=== PATIENT | male | born 1985 | race Caucasian/White ===

== ENCOUNTER 2021-01-19 19:54 | Emergency (ER) | payer OTHER ==
[~2021-01-19] VITALS: Ht 172.7 cm; Wt 77.1 kg
[2021-01-19 21:03] VITALS: BP 152/90
[2021-01-19] MEDS ORDERED: LIDOCAINE VISCOUS 2% UD 15 ML UDC ONE (21:20)
--- NOTE | 2021-01-19 21:27 | NUR ---
JOSE RAFAEL PEMBERTON AT BEDSIDE FOR FOREIGN BODY REMOVAL.
--- NOTE | 2021-01-19 21:44 | NUR ---
TECH AT BEDSIDE FOR IRRIGATION
--- NOTE | 2021-01-19 21:56 | NUR ---
FOREIGN BODY IS REMOVED.
--- NOTE | 2021-01-19 21:57 | NUR ---
PATIENT DENIES PAIN. PATIENT NOT IN DISTRESS.
[2021-01-19] MEDS ORDERED: LIDOCAINE VISCOUS 2% UD 15 ML UDC MM ONE (22:00)
[2021-01-19] MEDS ORDERED: NEOM10DR11 OT (22:00)
--- NOTE | 2021-01-19 22:06 | NUR ---
Patient discharged to home in stable condition. Written and verbal after care instructions given. Patient verbalizes understanding of instruction.
== END 2021-01-19 22:07 | disposition home or self-care (01) ==
LOC: ER 20:02
DX: T16.2XXA Foreign body in left ear, initial encounter (principal); Z88.1 Allergy status to other antibiotic agents; X58.XXXA Exposure to other specified factors, initial encounter; Y93.89 Activity, other specified; Y92.89 Other specified places as the place of occurrence of the external cause; Y99.8 Other external cause status